=== PATIENT | female | born 1965 | race Caucasian/White ===

== ENCOUNTER → 2018-12-11 | Outpatient (CLI) | payer MEDICAID ==
[~2018-12-11] MED LIST: ASPI1TAB87 PO; ATOR40TA78 PO; DOCU-193 PO; METH10TA6 PO; PROP60TA PO; VITA1CAP5 PO
== END | disposition home or self-care (01) ==
LOC: CFH 14:00
PROVIDERS: ATTEND Nurse Practitioner
DX: J98.11 Atelectasis (principal); J84.10 Pulmonary fibrosis, unspecified; G47.33 Obstructive sleep apnea (adult) (pediatric); Z87.891 Personal history of nicotine dependence
CPT/HCPCS: 71250

== ENCOUNTER → 2019-10-29 | Outpatient (CLI) | payer MEDICAID ==
[~2019-10-29] MED LIST changes: +REGADENOSON 0.4 MG/5 ML SYRINGE ONE
== END | disposition home or self-care (01) ==
LOC: CVU 11:05
PROVIDERS: ATTEND Physician Assistant Medical
DX: I08.3 Combined rheumatic disorders of mitral, aortic and tricuspid valves (principal); E78.5 Hyperlipidemia, unspecified; Z87.891 Personal history of nicotine dependence; Z86.73 Personal history of transient ischemic attack (TIA), and cerebral infarction without residual deficits
CPT/HCPCS: 78452; 93017; 93306; 93356; A9502; J2785

== ENCOUNTER 2020-06-16 12:34 | Outpatient (CLI) | payer MEDICAID ==
[~2020-06-16 12:34] MED LIST changes: -REGADENOSON 0.4 MG/5 ML SYRINGE ONE
== END 2020-06-16 23:59 | disposition home or self-care (01) ==
LOC: CVU 12:34
PROVIDERS: ATTEND Physician Assistant Medical
DX: I87.2 Venous insufficiency (chronic) (peripheral) (principal); R60.9 Edema, unspecified
CPT/HCPCS: 93970

== ENCOUNTER 2020-09-16 16:14 | Inpatient (IN) | payer MEDICAID ==
[~2020-09-16] VITALS: Ht 172.7 cm; Wt 135.1 kg
[2020-09-16] MEDS ORDERED: SODIUM CHLORIDE 0.9% 1,000ML IVBOLUS ONE (17:00)
[2020-09-16] MEDS ORDERED: SODIUM CHLORIDE FLUSH 10ML SYR IVF ONE (17:00)
[2020-09-16 17:31] LABS: BASOPHILS % (AUTO) 1 % (0-1); EOSINOPHILS % (AUTO) 3 % (1-7); LYMPHOCYTES % (AUTO) 11 % (22-44); MEAN CORPUSCULAR HEMOGLOBIN 31.2 pg (27.0-34.8); MEAN PLATELET VOLUME 7.2 fL (7.4-10.4); MONOCYTES % (AUTO) 8 % (2-9); NEUTROPHILS % (AUTO) 77 % (42-75); PLATELET COUNT 747 x10^3/uL (130-400); RED BLOOD COUNT 3.73 x10^6/uL (3.82-5.3); RED CELL DISTRIBUTION WIDTH 15.2 % (9.6-15.2)
[2020-09-16 17:33] LABS: MD NO
[2020-09-16 17:42] LABS: ALANINE AMINOTRANSFERASE 13 U/L (12-78); ALBUMIN 2.3 g/dL (3.4-5.0); ANION GAP 4 mmol/L (5-15); CALCIUM 8.9 mg/dL (8.5-10.1); CHLORIDE 103 mmol/L (98-107); CREATININE 0.89 mg/dL (0.55-1.02)
[2020-09-16 17:44] LABS: ALKALINE PHOSPHATASE 147 U/L (45-117); BILIRUBIN,TOTAL 0.2 mg/dL (0.2-1.0); TOTAL PROTEIN 8.1 g/dL (6.4-8.2)
--- NOTE | 2020-09-16 19:05 | NUR ---
pt to room from lobby
[2020-09-16] MEDS ORDERED: ONDANSETRON 2MG/ML, 2ML IVPush ONE (20:00)
--- NOTE | 2020-09-16 20:01 | NUR ---
FIRST ENCOUNTER WITH PT, PT HERE FOR C/O PAIN AND SWELLING ON RIGHT LEG, PT HAS A EXTERNAL FIXATOR PLACED ON JULY.
[2020-09-16] MEDS ORDERED: AMPICILLIN/SULBACTAM 3 GM in SODIUM CHLORIDE 0.9% 100 ML IV ONE (22:30)
[2020-09-16] MEDS ORDERED: VANCOMYCIN PER PHARMACY MC PRN (22:30)
[2020-09-16] MEDS ORDERED: PLEASE ENTER ACCURATE WEIGHT MC SCH (23:00)
--- NOTE | 2020-09-16 23:05 | NUR ---
RECEIVED BS REPORT FROM TONY PORRAS TO ASSUME CARE OF PT. AT THIS TIME. PT. PROVIDED EXTRA WARM BLANKET PER REQUEST. UNABLE TO OBTAIN PT. WEIGHT VIA STANDING SCALE PT. HAS EXTERNAL FIXATOR TO RIGHT FOOT. NEED WEIGHTED BED; AWATING FOR ARRIVAL FROM HOUSEKEEPING.
--- NOTE | 2020-09-16 23:21 | NUR ---
ADMITTING MD AT TO EVAL PT. AND DISCUSS POC.
[2020-09-17] MEDS ORDERED: LABETALOL 5MG/ML, 20ML IVPush PRN
[2020-09-17] MEDS ORDERED: VANCOMYCIN PER PHARMACY MC PRN
[2020-09-17] MEDS ORDERED: MELATONIN 5 MG TABLET PO PRN
[2020-09-17] MEDS ORDERED: ENALAPRILAT 1.25 MG/ML, 2ML IVPush PRN ×2
[2020-09-17] MEDS ORDERED: BISACODYL 10 MG SUPP PR PRN
[2020-09-17] MEDS ORDERED: morphine SULFATE 10 MG/ML, 1ML IVPush PRN
[2020-09-17] MEDS ORDERED: ONDANSETRON ODT 4 MG PO PRN
[2020-09-17] MEDS ORDERED: ENOXAPARIN 40 MG/0.4 ML SQ SCH
[2020-09-17] MEDS ORDERED: POLYETHYLENE GLYCOL 17 GM PACKET PO PRN
[2020-09-17] MEDS ORDERED: hydrALAzine 20 MG/ML, 1ML IVPush PRN
[2020-09-17] MEDS ORDERED: ONDANSETRON 2MG/ML, 2ML IVPush PRN
[2020-09-17] MEDS ORDERED: MORPHINE SULFATE 4 MG/ML, 1ML ONE ×2 (00:32→09:34)
[2020-09-17] MEDS ORDERED: ACETAMINOPHEN 325 MG TABLET ONE (00:33)
[2020-09-17] MEDS ORDERED: ENOXAPARIN 40 MG/0.4 ML ONE (00:33)
[2020-09-17] MEDS: MORPHINE SULFATE 4 MG/ML, 1ML IVPush PRN ×2 (00:35→09:47)
[2020-09-17] MEDS: ACETAMINOPHEN 325 MG TABLET PO PRN (00:39)
[2020-09-17] MEDS ORDERED: ONDANSETRON 2MG/ML, 2ML ONE (00:40)
[2020-09-17] MEDS: AMPICILLIN/SULBACTAM 3 GM in SODIUM CHLORIDE 0.9% 100 ML IV SCH ×4 (00:42→23:13)
[2020-09-17] MEDS ORDERED: OXYcodone IR 5MG TABLET ONE ×2 (00:50→05:41)
[2020-09-17] MEDS: OXYcodone IR 5MG TABLET PO PRN ×3 (00:52→21:47)
[2020-09-17] MEDS ORDERED: VANCOMYCIN 2,500 MG in SODIUM CHLORIDE 0.9% 500 ML IV ONE (01:00)
--- NOTE | 2020-09-17 02:50 | NUR ---
PT. RESTING ON HOSPITAL BED WITH EYES CLOSED. NO DISTRESS NOTED. RESPIRATIONS VISIBLE AND NON-LABORED. ALL SAFETY MEASURES OBSERVED.
[2020-09-17] MEDS ORDERED: ALBUTEROL HFA 90 MCG/SPRAY INH PRN (03:00)
[2020-09-17 04:49] LABS: BASOPHILS % (AUTO) 1 % (0-1); EOSINOPHILS % (AUTO) 3 % (1-7); LYMPHOCYTES % (AUTO) 12 % (22-44); MEAN CORPUSCULAR HEMOGLOBIN 32.8 pg (27.0-34.8); MEAN CORPUSCULAR HGB CONC 33.3 g/dL (32.4-35.8); MONOCYTES % (AUTO) 9 % (2-9); NEUTROPHILS % (AUTO) 76 % (42-75); PLATELET COUNT 837 x10^3/uL (130-400); RED BLOOD COUNT 3.65 x10^6/uL (3.82-5.3); RED CELL DISTRIBUTION WIDTH 15.4 % (9.6-15.2)
[2020-09-17 04:59] LABS: CALCIUM 8.7 mg/dL (8.5-10.1); CHLORIDE 106 mmol/L (98-107)
[2020-09-17 05:05] LABS: ALANINE AMINOTRANSFERASE 12 U/L (12-78); ALBUMIN 2.2 g/dL (3.4-5.0); ALKALINE PHOSPHATASE 144 U/L (45-117); ANION GAP 5 mmol/L (5-15); BILIRUBIN,TOTAL 0.4 mg/dL (0.2-1.0); CREATININE 0.91 mg/dL (0.55-1.02); TOTAL PROTEIN 7.8 g/dL (6.4-8.2)
[2020-09-17 05:49] LABS: MD SCAN
[2020-09-17] MEDS: LEVOTHYROXINE 175 MCG TABLET PO SCH (06:18)
[2020-09-17] MEDS: METOPROLOL SUCCINATE 25 MG TAB.ER.24H PO SCH (06:18)
--- NOTE | 2020-09-17 06:47 | NUR ---
TECH AT BEDSIDE FOR EKG FOR NEW TACHYCARDIA AND FEELING SOB
--- NOTE | 2020-09-17 06:51 | NUR ---
EKG DONE. SINUS TACH NOTED. PT. HR WHEN MOVING ON BED INCREASED TO 140'S AND PT. C/O EXTREME SOB AT THAT TIME. 4L OF NC WAS IN USE PT. WAS DESATTING WHILE SLEEPING DURING THE NIGHT. WHEN PT. WANTED TO SIT ON SIDE OF BED O2 SAT NOTED TO DROP TO LOW 70'S; NRB MASK PLACED AT 15L. PT. INCREASE TO 100% O2 SAT IMMEDIATLY. AFTER A COUPLE OF MINUTES PT. REPROTS SOB SUBSIDED. CALL BEING PLACED TO [facility] ADMITTING TEAM.
[2020-09-17] MEDS ORDERED: METOPROLOL 1 MG/ML, 5ML IVPush ONE (07:00)
--- NOTE | 2020-09-17 07:16 | NUR ---
[facility] ADMITTING RESIDENT MAURI CALLED BACK; EXPLAINED THIS AM OCCURENCES AND NEW ORDERS WERE RECEIVED AND ENTERED APPROPRIATELY. [facility] ADMITTING TEAM CURRENTLY AT BS TO EVAL PT. AND FURTHER DISUCSS POC. BS REPORT TO TONY PADILLA TO ASSUME CARE OF PT. PT. A&O X 4. NRB REMOVED AND O2 AT 4L VIA NC REPLACED. ALL SAFETY MEASURES OBSERVED.
--- NOTE | 2020-09-17 07:20 | NUR ---
Report from Eli JIMENEZ [facility] at bedside - plan to upgrade to med tele, place on npo With assessment- O2 switched from nrb to 4l nc -> pox 95%, hr 120's
[2020-09-17] MEDS ORDERED: METOPROLOL 1 MG/ML, 5ML ONE (07:23)
[2020-09-17] MEDS ORDERED: PHARMACOKINETIC CONSULTATION MC ONE (09:00)
[2020-09-17] MEDS ORDERED: PHARMACOKINETIC MONITORING MC PRN (09:00)
[2020-09-17] MEDS: SODIUM CHLORIDE 0.9% 1,000 ML IV SCH ×2 (09:02→15:00)
[2020-09-17] MEDS: PAROXETINE 10 MG TABLET PO SCH (09:03)
--- NOTE | 2020-09-17 09:48 | NUR ---
MEDICATED PER EMAR FOR RIGHT LEG PAIN AT 8 PRE EXTERNAL FIXATOR PIN CARE COMPLETED WOUND CULTURE OBTAINED FOR WEEPING SITE. THEN ALL PINS CLEANSED THEN DRESSED
--- NOTE | 2020-09-17 10:50 | NUR ---
REPORT TO LIDIA JIMENEZ SHE WAS MADE AWARE OF SIGNIFICANT WOUNDS AROUND MOST OF EXTERNAL FIXATOR PIN SITES. ALSO UPPER CALF RING PRESSING INTO SKIN OF CALF. SHE WAS MADE AWARE OF NEED TO [facility] TO ASSURE THEY EVALUATE WOUND TODAY
[2020-09-17 12:16] VITALS: BP 111/72
[2020-09-17] MEDS: ENOXAPARIN 30 MG/0.3 ML SQ SCH (17:27)
[2020-09-17 18:34] VITALS: BP 136/85
[2020-09-17] MEDS: ATORVASTATIN 40 MG TABLET PO SCH (19:52)
[2020-09-17] MEDS: VANCOMYCIN 2,000 MG in SODIUM CHLORIDE 0.9% 500 ML IV SCH (19:52)
[2020-09-17] MEDS: hydrOXyzine 50MG TABLET PO SCH (19:52)
[2020-09-17] MEDS: IBUPROFEN 600 MG TABLET PO PRN (20:54)
[2020-09-18 00:32] VITALS: BP 107/61
[2020-09-18] MEDS: ENOXAPARIN 30 MG/0.3 ML SQ SCH ×2 (00:42→12:03)
[2020-09-18] MEDS: SODIUM CHLORIDE 0.9% 1,000 ML IV SCH (02:49)
[2020-09-18] MEDS: ACETAMINOPHEN 325 MG TABLET PO PRN ×4 (03:49→23:11)
[2020-09-18] MEDS: OXYcodone IR 5MG TABLET PO PRN ×4 (03:51→23:11)
[2020-09-18] MEDS: AMPICILLIN/SULBACTAM 3 GM in SODIUM CHLORIDE 0.9% 100 ML IV SCH ×3 (05:05→17:26)
[2020-09-18] MEDS: METOPROLOL SUCCINATE 25 MG TAB.ER.24H PO SCH (05:08)
[2020-09-18] MEDS: LEVOTHYROXINE 175 MCG TABLET PO SCH (05:08)
[2020-09-18 06:22] LABS: BASOPHILS % (AUTO) 1 % (0-1); EOSINOPHILS % (AUTO) 3 % (1-7); LYMPHOCYTES % (AUTO) 20 % (22-44); MEAN CORPUSCULAR HEMOGLOBIN 32.3 pg (27.0-34.8); MEAN CORPUSCULAR HGB CONC 32.6 g/dL (32.4-35.8); MEAN PLATELET VOLUME 6.8 fL (7.4-10.4); MONOCYTES % (AUTO) 12 % (2-9); NEUTROPHILS % (AUTO) 64 % (42-75); PLATELET COUNT 711 x10^3/uL (130-400); RED BLOOD COUNT 3.31 x10^6/uL (3.82-5.3); RED CELL DISTRIBUTION WIDTH 15.3 % (9.6-15.2)
[2020-09-18 06:28] LABS: ANION GAP 2 mmol/L (5-15); CALCIUM 8.6 mg/dL (8.5-10.1); CHLORIDE 105 mmol/L (98-107); CREATININE 0.99 mg/dL (0.55-1.02)
[2020-09-18 06:30] VITALS: BP 139/80
[2020-09-18 06:37] LABS: MD NO
[2020-09-18] MEDS: PAROXETINE 10 MG TABLET PO SCH (07:54)
[2020-09-18] MEDS: VANCOMYCIN 2,000 MG in SODIUM CHLORIDE 0.9% 500 ML IV SCH ×2 (07:54→20:06)
[2020-09-18] MEDS: LACTOBACILLUS CHEW TABLET PO SCH (12:03)
[2020-09-18] MEDS: IBUPROFEN 600 MG TABLET PO PRN (12:03)
[2020-09-18 12:40] VITALS: BP 149/81
[2020-09-18] MEDS: hydrOXyzine 50MG TABLET PO SCH (20:06)
[2020-09-18] MEDS: ATORVASTATIN 40 MG TABLET PO SCH (20:06)
[2020-09-18 20:45] VITALS: BP 140/85
[2020-09-19] MEDS: ENOXAPARIN 30 MG/0.3 ML SQ SCH ×2 (00:40→14:29)
[2020-09-19] MEDS: AMPICILLIN/SULBACTAM 3 GM in SODIUM CHLORIDE 0.9% 100 ML IV SCH ×2 (00:40→05:26)
[2020-09-19 02:15] VITALS: BP 139/80
[2020-09-19] MEDS: ACETAMINOPHEN 325 MG TABLET PO PRN ×5 (02:53→23:43)
[2020-09-19] MEDS: OXYcodone IR 5MG TABLET PO PRN ×5 (02:54→23:44)
[2020-09-19] MEDS: DOCUSATE 100 MG CAPSULE PO PRN (02:54)
[2020-09-19] MEDS: LEVOTHYROXINE 175 MCG TABLET PO SCH (05:26)
[2020-09-19] MEDS: METOPROLOL SUCCINATE 25 MG TAB.ER.24H PO SCH (05:26)
[2020-09-19 06:16] LABS: BASOPHILS % (AUTO) 1 % (0-1); EOSINOPHILS % (AUTO) 3 % (1-7); LYMPHOCYTES % (AUTO) 12 % (22-44); MEAN CORPUSCULAR HEMOGLOBIN 31.6 pg (27.0-34.8); MEAN CORPUSCULAR HGB CONC 32.3 g/dL (32.4-35.8); MEAN PLATELET VOLUME 7.3 fL (7.4-10.4); MONOCYTES % (AUTO) 8 % (2-9); NEUTROPHILS % (AUTO) 77 % (42-75); PLATELET COUNT 663 x10^3/uL (130-400); RED BLOOD COUNT 3.04 x10^6/uL (3.82-5.3)
[2020-09-19 06:19] LABS: MD NO
[2020-09-19 06:28] LABS: ANION GAP 4 mmol/L (5-15); CALCIUM 8.5 mg/dL (8.5-10.1); CHLORIDE 106 mmol/L (98-107)
[2020-09-19] MEDS: PAROXETINE 10 MG TABLET PO SCH (07:17)
[2020-09-19] MEDS: LACTOBACILLUS CHEW TABLET PO SCH (07:18)
[2020-09-19 07:38] VITALS: BP 156/81
[2020-09-19] MEDS: VANCOMYCIN 2,000 MG in SODIUM CHLORIDE 0.9% 500 ML IV SCH (08:21)
[2020-09-19 12:42] VITALS: BP 146/83
[2020-09-19 19:37] VITALS: BP 157/83
[2020-09-19] MEDS: hydrOXyzine 50MG TABLET PO SCH (20:07)
[2020-09-19] MEDS: ATORVASTATIN 40 MG TABLET PO SCH (20:07)
[2020-09-20 01:44] VITALS: BP 163/94
[2020-09-20] MEDS: ENOXAPARIN 30 MG/0.3 ML SQ SCH ×2 (01:57→14:59)
[2020-09-20 04:45] LABS: BASOPHILS % (AUTO) 1 % (0-1); EOSINOPHILS % (AUTO) 3 % (1-7); HCT (SEDRATE) 31.4 % (34.6-47.8); LYMPHOCYTES % (AUTO) 14 % (22-44); MD NO; MEAN CORPUSCULAR HEMOGLOBIN 33.2 pg (27.0-34.8); MEAN PLATELET VOLUME 7.2 fL (7.4-10.4); MONOCYTES % (AUTO) 10 % (2-9); NEUTROPHILS % (AUTO) 73 % (42-75); PLATELET COUNT 659 x10^3/uL (130-400); RED BLOOD COUNT 3.14 x10^6/uL (3.82-5.3); RED CELL DISTRIBUTION WIDTH 14.9 % (9.6-15.2)
[2020-09-20 04:56] LABS: CHLORIDE 104 mmol/L (98-107)
[2020-09-20] MEDS: ACETAMINOPHEN 325 MG TABLET PO PRN ×2 (05:05→12:08)
[2020-09-20] MEDS: METOPROLOL SUCCINATE 25 MG TAB.ER.24H PO SCH (05:05)
[2020-09-20] MEDS: LEVOTHYROXINE 175 MCG TABLET PO SCH (05:06)
[2020-09-20] MEDS: OXYcodone IR 5MG TABLET PO PRN ×3 (05:06→20:07)
[2020-09-20 05:09] LABS: ANION GAP 2 mmol/L (5-15); CALCIUM 8.7 mg/dL (8.5-10.1); CREATININE 0.72 mg/dL (0.55-1.02); VANCOMYCIN,RANDOM 20.6 mcg/mL
[2020-09-20 06:40] VITALS: BP 139/92
[2020-09-20] MEDS: PAROXETINE 10 MG TABLET PO SCH (08:11)
[2020-09-20] MEDS: ERTAPENEM 1 GM in SODIUM CHLORIDE 0.9% 50 ML IVPB SCH (08:11)
[2020-09-20] MEDS: LACTOBACILLUS CHEW TABLET PO SCH (08:12)
[2020-09-20] MEDS: RIFAMPIN 300 MG CAPSULE PO SCH (08:12)
[2020-09-20] MEDS: DOCUSATE 100 MG CAPSULE PO PRN (08:12)
[2020-09-20 13:26] VITALS: BP 135/90
[2020-09-20] MEDS: NICOTINE 7 MG/24 HR PATCH.TD24 TD SCH (17:19)
[2020-09-20 18:31] VITALS: BP 136/82
[2020-09-20] MEDS: ATORVASTATIN 40 MG TABLET PO SCH (20:07)
[2020-09-20] MEDS: hydrOXyzine 50MG TABLET PO SCH (20:07)
[2020-09-21 01:21] VITALS: BP 146/85
[2020-09-21] MEDS: OXYcodone IR 5MG TABLET PO PRN ×4 (01:28→21:25)
[2020-09-21] MEDS: ENOXAPARIN 30 MG/0.3 ML SQ SCH ×2 (02:41→13:50)
[2020-09-21 06:30] VITALS: BP 172/91
[2020-09-21] MEDS: METOPROLOL SUCCINATE 25 MG TAB.ER.24H PO SCH (06:30)
[2020-09-21] MEDS: LEVOTHYROXINE 175 MCG TABLET PO SCH (06:30)
[2020-09-21] MEDS: ERTAPENEM 1 GM in SODIUM CHLORIDE 0.9% 50 ML IVPB SCH (06:30)
[2020-09-21] MEDS: RIFAMPIN 300 MG CAPSULE PO SCH (08:17)
[2020-09-21] MEDS: LACTOBACILLUS CHEW TABLET PO SCH (08:18)
[2020-09-21] MEDS: PAROXETINE 10 MG TABLET PO SCH (08:18)
[2020-09-21 09:12] LABS: BASOPHILS % (AUTO) 1 % (0-1); EOSINOPHILS % (AUTO) 2 % (1-7); LYMPHOCYTES % (AUTO) 11 % (22-44); MEAN CORPUSCULAR HEMOGLOBIN 31.9 pg (27.0-34.8); MEAN CORPUSCULAR HGB CONC 33.1 g/dL (32.4-35.8); MEAN PLATELET VOLUME 7.2 fL (7.4-10.4); MONOCYTES % (AUTO) 10 % (2-9); NEUTROPHILS % (AUTO) 77 % (42-75); PLATELET COUNT 650 x10^3/uL (130-400); RED BLOOD COUNT 3.46 x10^6/uL (3.82-5.3); RED CELL DISTRIBUTION WIDTH 15.1 % (9.6-15.2)
[2020-09-21 09:13] LABS: ALANINE AMINOTRANSFERASE 12 U/L (12-78); ALBUMIN 2.3 g/dL (3.4-5.0); ANION GAP 3 mmol/L (5-15); CALCIUM 8.7 mg/dL (8.5-10.1); CHLORIDE 103 mmol/L (98-107); CREATININE 0.65 mg/dL (0.55-1.02); MD NO
[2020-09-21 09:15] LABS: ALKALINE PHOSPHATASE 126 U/L (45-117); BILIRUBIN,TOTAL 0.4 mg/dL (0.2-1.0); TOTAL PROTEIN 7.5 g/dL (6.4-8.2)
[2020-09-21 11:37] VITALS: BP 168/93
[2020-09-21 14:25] VITALS: BP 167/95
[2020-09-21] MEDS: NICOTINE 7 MG/24 HR PATCH.TD24 TD SCH (16:12)
[2020-09-21 20:16] VITALS: BP 160/85
[2020-09-21] MEDS: ATORVASTATIN 40 MG TABLET PO SCH (21:21)
[2020-09-21] MEDS: hydrOXyzine 50MG TABLET PO SCH (21:21)
[2020-09-22] MEDS: OXYcodone IR 5MG TABLET PO PRN ×4 (01:41→20:59)
[2020-09-22] MEDS: ACETAMINOPHEN 325 MG TABLET PO PRN ×5 (01:41→22:39)
[2020-09-22] MEDS: ENOXAPARIN 30 MG/0.3 ML SQ SCH ×2 (01:44→15:13)
[2020-09-22 01:47] VITALS: BP 159/89
[2020-09-22 05:02] LABS: HCT (SEDRATE) 34.9 % (34.6-47.8)
[2020-09-22 05:03] LABS: BASOPHILS % (AUTO) 1 % (0-1); EOSINOPHILS % (AUTO) 2 % (1-7); LYMPHOCYTES % (AUTO) 16 % (22-44); MEAN CORPUSCULAR HEMOGLOBIN 31.8 pg (27.0-34.8); MEAN CORPUSCULAR HGB CONC 32.6 g/dL (32.4-35.8); MEAN PLATELET VOLUME 7.5 fL (7.4-10.4); MONOCYTES % (AUTO) 12 % (2-9); NEUTROPHILS % (AUTO) 69 % (42-75); PLATELET COUNT 651 x10^3/uL (130-400); RED BLOOD COUNT 3.58 x10^6/uL (3.82-5.3); RED CELL DISTRIBUTION WIDTH 15.4 % (9.6-15.2)
[2020-09-22 05:10] LABS: ANION GAP 5 mmol/L (5-15); CALCIUM 8.6 mg/dL (8.5-10.1); CHLORIDE 103 mmol/L (98-107); CREATININE 0.74 mg/dL (0.55-1.02)
[2020-09-22 05:11] LABS: ALANINE AMINOTRANSFERASE 13 U/L (12-78); ALBUMIN 2.2 g/dL (3.4-5.0); MD NO
[2020-09-22] MEDS: METOPROLOL SUCCINATE 25 MG TAB.ER.24H PO SCH (05:17)
[2020-09-22] MEDS: LEVOTHYROXINE 175 MCG TABLET PO SCH (05:17)
[2020-09-22 05:19] LABS: ALKALINE PHOSPHATASE 127 U/L (45-117); BILIRUBIN,TOTAL 0.3 mg/dL (0.2-1.0); TOTAL PROTEIN 7.3 g/dL (6.4-8.2)
[2020-09-22 07:01] VITALS: BP 136/89
[2020-09-22] MEDS: ERTAPENEM 1 GM in SODIUM CHLORIDE 0.9% 50 ML IVPB SCH (08:00)
[2020-09-22] MEDS: LACTOBACILLUS CHEW TABLET PO SCH (08:00)
[2020-09-22] MEDS: RIFAMPIN 300 MG CAPSULE PO SCH (08:00)
[2020-09-22] MEDS: PAROXETINE 10 MG TABLET PO SCH (08:00)
[2020-09-22 13:10] VITALS: BP 163/104
[2020-09-22] MEDS: NICOTINE 7 MG/24 HR PATCH.TD24 TD SCH (17:06)
[2020-09-22 18:33] VITALS: BP 165/93
[2020-09-22] MEDS: ATORVASTATIN 40 MG TABLET PO SCH (20:58)
[2020-09-22] MEDS: hydrOXyzine 50MG TABLET PO SCH (20:58)
[2020-09-23 01:08] VITALS: BP 165/92
[2020-09-23] MEDS: OXYcodone IR 5MG TABLET PO PRN ×3 (01:19→10:20)
[2020-09-23] MEDS: ENOXAPARIN 30 MG/0.3 ML SQ SCH ×2 (02:51→15:00)
[2020-09-23] MEDS: LEVOTHYROXINE 175 MCG TABLET PO SCH (06:13)
[2020-09-23] MEDS: METOPROLOL SUCCINATE 25 MG TAB.ER.24H PO SCH (06:14)
[2020-09-23] MEDS: ERTAPENEM 1 GM in SODIUM CHLORIDE 0.9% 50 ML IVPB SCH (06:50)
[2020-09-23 08:00] VITALS: BP 154/95
[2020-09-23] MEDS: RIFAMPIN 300 MG CAPSULE PO SCH (08:27)
[2020-09-23] MEDS: PAROXETINE 10 MG TABLET PO SCH (08:28)
[2020-09-23] MEDS: LACTOBACILLUS CHEW TABLET PO SCH (08:28)
[2020-09-23 08:42] LABS: ANION GAP 4 mmol/L (5-15); CALCIUM 8.7 mg/dL (8.5-10.1); CHLORIDE 104 mmol/L (98-107); CREATININE 0.73 mg/dL (0.55-1.02)
[2020-09-23 08:46] LABS: BASOPHILS % (AUTO) 1 % (0-1); EOSINOPHILS % (AUTO) 2 % (1-7); LYMPHOCYTES % (AUTO) 15 % (22-44); MEAN CORPUSCULAR HEMOGLOBIN 32.5 pg (27.0-34.8); MEAN CORPUSCULAR HGB CONC 33.3 g/dL (32.4-35.8); MEAN PLATELET VOLUME 7.4 fL (7.4-10.4); MONOCYTES % (AUTO) 11 % (2-9); NEUTROPHILS % (AUTO) 71 % (42-75); PLATELET COUNT 698 x10^3/uL (130-400); RED BLOOD COUNT 3.75 x10^6/uL (3.82-5.3); RED CELL DISTRIBUTION WIDTH 15.6 % (9.6-15.2)
[2020-09-23 08:47] LABS: MD NO
[2020-09-23] MEDS ORDERED: LISINOPRIL 10 MG TABLET PO SCH (09:00)
[2020-09-23] MEDS ORDERED: SODIUM CHLORIDE NASAL SPRAY 45ML BOTTLE NAS PRN (11:00)
[2020-09-23 13:04] VITALS: BP 157/97
[2020-09-23] MEDS ORDERED: RIFA300C3 PO (13:33)
[2020-09-23] MEDS ORDERED: METO25TA91 PO (13:33)
[2020-09-23] MEDS ORDERED: LEVO175T2 PO (13:33)
[2020-09-23] MEDS ORDERED: PARO10TA3 PO (13:33)
[2020-09-23] MEDS ORDERED: LISI-167 PO (13:33)
[2020-09-23] MEDS: NICOTINE 7 MG/24 HR PATCH.TD24 TD SCH (15:32)
[2020-09-23] MEDS: ACETAMINOPHEN 325 MG TABLET PO PRN (15:38)
[2020-09-23 18:37] VITALS: BP 154/66
== END 2020-09-23 18:41 | DRG 349 ==
LOC: ED 16:44 → EDIP 09-17 00:52 → 4NE 09-17 11:55
PROVIDERS: ADMIT Family Medicine; ATTEND Family Medicine
DX: T84.629A Infection and inflammatory reaction due to internal fixation device of unspecified bone of leg, initial encounter (principal); E03.9 Hypothyroidism, unspecified; E66.9 Obesity, unspecified; I87.2 Venous insufficiency (chronic) (peripheral); F41.9 Anxiety disorder, unspecified; G47.33 Obstructive sleep apnea (adult) (pediatric); I10 Essential (primary) hypertension; J44.9 Chronic obstructive pulmonary disease, unspecified; F32.9 Major depressive disorder, single episode, unspecified; F17.200 Nicotine dependence, unspecified, uncomplicated; E11.69 Type 2 diabetes mellitus with other specified complication; F19.20 Other psychoactive substance dependence, uncomplicated; F12.10 Cannabis abuse, uncomplicated; W18.39XA Other fall on same level, initial encounter; B95.61 Methicillin susceptible Staphylococcus aureus infection as the cause of diseases classified elsewhere; Z66 Do not resuscitate; J96.01 Acute respiratory failure with hypoxia; L03.115 Cellulitis of right lower limb; S82.409A Unspecified fracture of shaft of unspecified fibula, initial encounter for closed fracture; Y92.009 Unspecified place in unspecified non-institutional (private) residence as the place of occurrence of the external cause; Z81.8 Family history of other mental and behavioral disorders; Z82.3 Family history of stroke; Z86.73 Personal history of transient ischemic attack (TIA), and cerebral infarction without residual deficits; Z79.899 Other long term (current) drug therapy; Y93.89 Activity, other specified; Y99.8 Other external cause status
CPT/HCPCS: 36415; 36573; 80048; 80053; 80202; 82728; 83605; 84145; 85025; 85651; 86140; 87040; 87070; 87077; 87186; 87205; 93005; 99285; G0378; J0295; J1335; J1650; J2405; J3370; C1751; J2270; J7030; J7040